=== PATIENT | male | born 1975 | race Caucasian/White ===

== ENCOUNTER 2017-10-04 00:45 | Emergency (ER) | payer SELFPAY ==
[2017-10-04 00:59] VITALS: BP 99/62; PULSE 73; RESP 14; TEMP 98; O2SAT 99
== END 2017-10-04 00:55 | disposition left against medical advice (07) ==
LOC: C.ER 00:45
DX: Z02.89 Encounter for other administrative examinations (principal); M54.2 Cervicalgia